=== PATIENT | male | born 1980 | race Caucasian/White ===

== ENCOUNTER 2020-07-26 10:57 | Day surgery (SDC) | payer MEDICAID ==
[~2020-07-26] VITALS: Ht 165.1 cm; Wt 67.3 kg
[~2020-07-26 10:57] MED LIST: SODIUM CHLORIDE 0.9% 1,000 ML ONE
[2020-07-26] MEDS ORDERED: LIDOCAINE/PF 2% 5 ML VIAL IM ONE (10:58)
[2020-07-26] MEDS ORDERED: PROPOFOL 1% 20 ML VIAL IVP ONE (10:58)
[2020-07-26 11:27] LABS: COVID AG,FIA SOURCE NASOPHARYNGEAL
[2020-07-26] MEDS ORDERED: SODIUM CHLORIDE 0.9% 1,000 ML IV ONE (11:30)
[2020-07-26] MEDS ORDERED: MESA400C2 PO (13:41)
== END 2020-07-26 14:05 | disposition home or self-care (01) ==
LOC: SURGERY 10:57
PROVIDERS: ATTEND Internal Medicine Gastroenterology
DX: K52.89 Other specified noninfective gastroenteritis and colitis (principal); K62.89 Other specified diseases of anus and rectum; K64.1 Second degree hemorrhoids; Z79.899 Other long term (current) drug therapy; Z98.890 Other specified postprocedural states
CPT/HCPCS: 45380; 87426; 88305; C1769; C9803; J2704; J3490; J7030